=== PATIENT | female | born 1950 ===

== ENCOUNTER 2016-05-13 19:17 | Inpatient (IN) | payer MEDICARE ==
[2016-05-13] MEDS ORDERED: Acetaminophen TAB* 325 MG PO PRN (21:04)
[2016-05-13] MEDS ORDERED: Dextrose 50% Syringe 50 ML* 25 GM/50 ML SYRINGE IV PUSH PRN (21:05)
[2016-05-13] MEDS: NS 0.9% 1000 ML* 1,000 ML IV SCH (21:14)
[2016-05-13] MEDS: Heparin VIAL(*) 5000 UNITS/ML VIAL (FIVE THOUSAND) SUBCUT SCH (21:32)
[2016-05-13] MEDS: Insulin LISPRO* 1 UNITS UNIT SUBCUT SCH (23:31)
[2016-05-13] MEDS: buPROPion SR TAB.SR* 200 MG PO SCH (23:32)
[2016-05-13] MEDS: Oxybutynin TAB* 5 MG PO SCH (23:32)
[2016-05-13] MEDS: DULoxetine DR CAP* 60 MG CAP.DR PO SCH (23:32)
[2016-05-14 00:29] LABS: Hematocrit 35 % (35-47); Hemoglobin 11.7 g/dl (12.0-16.0); Mean Corpuscular HGB Conc 34 g/dl (31-36); Mean Corpuscular Hemoglobin 29 pg (27-31); Mean Corpuscular Volume 88 fL (80-97); Mean Platelet Volume 9 um3 (7.4-10.4); Red Blood Count 3.98 10^6/ul (4.0-5.4); Red Cell Distribution Width 14 % (10.5-15)
[2016-05-14 00:43] LABS: EGFR African American 20.3 (>60); EGFR Non-African American 15.8 (>60)
--- NOTE | 2016-05-14 01:10 | HP ---
HISTORY AND PHYSICAL: DATE OF ADMISSION: 05/13/16 CHIEF COMPLAINT: "I couldn't get out of my bathtub." HISTORY OF PRESENT ILLNESS: The patient is a 65-year-old woman who has had a decreased appetite over the past week and on Thursday morning said she had a sweet and salty bar and a glass of milk and then felt a little tired. She did have some Reji crackers with milk and took a belch and it tasted like eggs. She went to the bathroom because she felt she had to vomit. She did vomit as she rushed in. She then felt that she had had diarrhea. She swung around to have it. Then she felt like she had to get cleaned up so she put her foot in the bathtub. As she tried to hold herself up with her hand, she fell, injuring her right and left shoulder and her chest where her breast implant was. She tried to pull herself up but was unable to. She felt her left knee and ankle were also injured, but she does not have much feeling in those areas because of the diabetic neuropathy. Then she screamed so loud that the neighbor came and got her. She was taken to [facility] where she was found to be in worsening renal failure, although not in rhabdomyolysis. She was also found to have no evidence of fracture. PAST MEDICAL HISTORY: She has a past medical history for right breast cancer, status post right mastectomy and subsequent tissue patient financial coordinator and breast implant. Depression, status post ECT, hypertension, hypothyroidism, diabetes mellitus currently not on medications. Diabetic neuropathy as noted above, history of lumbar strain, history of herniated disk. PAST SURGICAL HISTORY: Significant for the tissue patient financial coordinator and mastectomy as noted above, also lymph node dissection, hemorrhoidectomy, anal fissure repair. CURRENT MEDICATIONS: 1. Bupropion SR 200 mg twice daily. 2. Dyazide 37.5/25 one capsule daily. 3. Potassium gluconate 99 mg daily. 4. Oxybutynin 5 mg twice daily. 5. Bystolic 10 mg daily. 6. Lisinopril 2.5 mg daily. 7. Levothyroxine 50 mcg daily. 8. Cymbalta 60 mg twice daily. 9. Vitamin B12 500 mcg daily. 10. Allopurinol 100 mg daily. 11. Vitamin D 400 units daily. ALLERGIES: She has an allergy/adverse reaction to CODEINE and ADHESIVE TAPE. FAMILY HISTORY: Mother at 79 of a CVA. Father at 86 of an IN. SOCIAL HISTORY: No tobacco. Rare alcohol. No recreational drug use. 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 She is a . She has 3 sons. She has no one she can name currently as her healthcare proxy. REVIEW OF SYSTEMS: A 14-point review of systems is completed with the patient. All pertinent positives and negatives are in the history of present illness, otherwise it is negative. PHYSICAL EXAMINATION GENERAL: Obese woman, lying in bed, in no acute distress. VITAL SIGNS: Temperature 98.2 degrees, heart rate 83 beats per minute, respiratory rate 19 breaths per minute, pulse ox 92% on 2 L, blood pressure 98/ 52. HEENT: Normocephalic, atraumatic. Pupils equal, round, and reactive to light. Moist mucous membranes. NECK: Supple. No JVD, bruits, palpable thyroid, or lymphadenopathy. CHEST: Clear to auscultation and percussion bilaterally. CARDIOVASCULAR: S1, S2 appreciated. Regular rate. ABDOMEN: Positive bowel sounds in all 4 quadrants. Soft, nontender, nondistended. EXTREMITIES: No cyanosis or clubbing. She has got bilateral edema. She has got dry cracking skin on the bottom of her feet. SKIN: Other than the aforementioned areas on her feet, no distinct lesions or abnormalities. DIAGNOSTIC STUDIES/LAB DATA: Her lab data from [place], white count 11.92, hemoglobin 14.7, hematocrit 44.1, platelets were 233. Sodium is 135, potassium 3.8, chloride 95, CO2 27, BUN is 65, creatinine 3.5, glucose is 136. CPK is 42. AST is 93, ALT is 20. Urinalysis shows +1 ketones, +1 protein, but negative leukocyte esterase and nitrites. Troponin was 0.01. EKG shows normal sinus rhythm at a rate of about 80 beats per minute. Normal axis. Intraventricular conduction delay, nonspecific ST-T wave changes. Her imaging: CT of the lumbar spine shows no fracture, stable grade 1 subluxation of L4 and L5. Significant spinal stenosis at L4-L5 with dynamic motion mass effect on the central nerve roots is a consideration, recommend clinical correlation, significant facet degenerative changes with significant neuroforaminal narrowing at bilateral L4-L5, L5-S1 with dynamic motion mass effect , which is a consideration, recommend clinical correlation. CT of her thoracic spine shows no fracture or subluxation. Multilevel degenerative changes. Her CT of the cervical spine shows no fracture or subluxation. Multilevel mild degenerative changes. CT of the head shows no acute intracranial hemorrhage, significant mass effect or large infarct, no displaced calvarial fracture or sinus air-fluid level. CT of the chest shows no focal infiltrate, pleural effusion or pneumothorax. A 7-mm left upper lobe nodule; according to ACR Lung-RADS, this is a category IV suspicious. Short- term followup low dose CT of the chest can be obtained in 3 months. On PET/CT examination, no rib fracture. ASSESSMENT AND PLAN: 1. Status post fall with dehydration and acute on chronic renal failure. Will hydrate the patient aggressively with normal saline at a rate of 150 cc an hour. Recheck labs in a.m. Imaging so far is negative. I will get a PT consult in the a.m. There does not seem to be any acute findings going on, but she may have spinal stenosis, which is contributing to her fall. 2. Diabetes mellitus. The patient says she was taken off her metformin for renal failure, which is appropriate. We will check her hemoglobin A1c and place her on fingerstick sliding scale insulin. For now, regular diet as the patient has not eaten for over 24 hours and I do not want to limit her. 3. Depression. Continue her Cymbalta and bupropion. 4. Hypothyroidism, stable. Continue Synthroid. 5. Hypertension. Continue her current medications and adjust accordingly if necessary. 6. Abnormal LFTs. AST:ALT ratio is quite high, although the labs are not that high. I am suspecting she may use alcohol, but she denies it. We will watch her overnight and see if any evidence of withdrawal. 7. FEN. Regular diet and normal saline 100 cc/hour. 8. DVT prophylaxis. Heparin subcu. 9. The patient is a full code. TIME SPENT: Over 85 minutes was spent on this H and P, more than 40 minutes of which was spent in direct [id number] contact with the patient in evaluation, physical exam, counseling, and coordination of care. CC: Wes Parry MD* [id number]/[facility] #: [id number] AZEEM
[2016-05-14] MEDS: Insulin LISPRO* 1 UNITS UNIT SUBCUT SCH ×4 (03:45→21:10)
[2016-05-14 04:50] LABS: Hematocrit 34 % (35-47); Hemoglobin 11.3 g/dl (12.0-16.0); Mean Corpuscular HGB Conc 33 g/dl (31-36); Mean Corpuscular Hemoglobin 29 pg (27-31); Mean Corpuscular Volume 88 fL (80-97); Mean Platelet Volume 9 um3 (7.4-10.4); Red Blood Count 3.87 10^6/ul (4.0-5.4); Red Cell Distribution Width 14 % (10.5-15)
[2016-05-14 05:21] LABS: Albumin 3.1 g/dL (3.2-5.2); BUN/Creatinine Ratio 19.2 (8-20); Calcium 9.9 mg/dL (8.6-10.3); EGFR African American 21.1 (>60); EGFR Non-African American 16.4 (>60); Globulin 2.5 g/dL (2-4); Total Bilirubin 0.4 mg/dL (0.2-1.0); Total Protein 5.6 g/dL (6.4-8.9)
[2016-05-14] MEDS: Heparin VIAL(*) 5000 UNITS/ML VIAL (FIVE THOUSAND) SUBCUT SCH ×3 (05:45→21:09)
[2016-05-14] MEDS: Levothyroxine TAB* 50 MCG TAB PO SCH (05:45)
[2016-05-14] MEDS: NS 0.9% 1000 ML* 1,000 ML IV SCH ×2 (06:47→14:00)
[2016-05-14] MEDS: buPROPion SR TAB.SR* 200 MG PO SCH ×2 (08:28→21:10)
[2016-05-14] MEDS: Cyanocobalamin TAB* 500 MCG PO SCH (08:29)
[2016-05-14] MEDS: Cholecalciferol TAB* 400 UNIT PO SCH (08:29)
[2016-05-14] MEDS: DULoxetine DR CAP* 60 MG CAP.DR PO SCH ×2 (08:30→21:10)
[2016-05-14] MEDS: Oxybutynin TAB* 5 MG PO SCH ×2 (08:30→21:11)
[2016-05-14] MEDS: CMCS Nebivolol TAB (NF) 2.5 MG TAB PO SCH (08:30)
[2016-05-14] MEDS: Allopurinol TAB* 100 MG PO SCH (08:30)
[2016-05-14] MEDS ORDERED: Lisinopril TAB* 5 MG PO SCH (09:00)
[2016-05-14 11:00] LABS: Urine Bilirubin Negative (Negative); Urine Glucose Negative (Negative); Urine Nitrite Negative (Negative)
[2016-05-14 11:59] LABS: Troponin I 0.03 ng/mL (<0.04)
--- NOTE | 2016-05-14 17:05 | PN ---
Subjective Date of Service: 05/14/16 Interval History: Seen and examined Circuitous conversation. Feels confused because she thought today was thursday She is affraid of going home because she does not think she can manage She also keeps returning to when she thought someone was breaking into her home PT agrees with KATHRIN placement and pt happy with this result No chest pain, no SOB, walking to bathroom with assistance, no N/V, tolerating food Objective Active Medications: Acetaminophen (Tylenol Tab*) 650 mg PO Q4H PRN PRN Reason: FEVER/PAIN Allopurinol (Zyloprim Tab*) 100 mg PO DAILY [facility] Last Admin: 05/14/16 08:30 Dose: 100 mg Bupropion HCl (Wellbutrin Sr Tab*) 200 mg PO BID [facility] Last Admin: 05/14/16 08:28 Dose: 200 mg Cholecalciferol (Vitamin D Tab*) 400 unit PO DAILY [facility] Last Admin: 05/14/16 08:29 Dose: 400 unit Cyanocobalamin (Vitamin B12 Tab*) 500 mcg PO DAILY [facility] Last Admin: 05/14/16 08:29 Dose: 500 mcg Dextrose (D50w Syringe 50 Ml*) 12.5 gm IV PUSH .FOR FS < 60 - SS PRN PRN Reason: FS < 60 Duloxetine HCl (Cymbalta Cap*) 60 mg PO BID [facility] Last Admin: 05/14/16 08:30 Dose: 60 mg Heparin Sodium (Porcine) (Heparin Vial(*)) 5,000 units SUBCUT Q8HR [facility] Last Admin: 05/14/16 13:17 Dose: 5,000 units Sodium Chloride (Ns 0.9% 1000 Ml*) 1,000 mls @ 150 mls/hr IV PER RATE [facility] Last Admin: 05/14/16 14:00 Dose: 150 mls/hr Insulin Human Lispro (Humalog*) 0 units SUBCUT ACHS [facility] PRN Reason: Protocol Last Admin: 05/14/16 11:50 Dose: 2 units Levothyroxine Sodium (Synthroid Tab*) 50 mcg PO 0600 [facility] Last Admin: 05/14/16 05:45 Dose: 50 mcg Lisinopril (Prinivil Tab*) 2.5 mg PO DAILY [facility] Last Admin: 05/14/16 08:28 Dose: 2.5 mg Nebivolol (Bystolic Tab (Nf)) 10 mg PO DAILY [facility] Last Admin: 05/14/16 08:30 Dose: 10 mg Ondansetron HCl (Zofran Inj*) 4 mg IV Q4H PRN PRN Reason: NAUSEA Oxybutynin Chloride (Ditropan Tab*) 5 mg PO BID [facility] Last Admin: 05/14/16 08:30 Dose: 5 mg Vital Signs 05/13/16 05/14/16 05/14/16 19:25 00:21 03:59 Temperature 98.2 F 98.3 F 98.3 F Pulse Rate 83 88 86 Respiratory 19 20 20 Rate Blood Pressure 98/52 93/52 95/44 (mmHg) O2 Sat by Pulse 92 99 97 Oximetry 05/14/16 05/14/16 05/14/16 07:40 07:58 11:06 Temperature 97.9 F 98.2 F Pulse Rate 78 80 Respiratory 16 16 16 Rate Blood Pressure 109/52 96/57 (mmHg) O2 Sat by Pulse 97 99 Oximetry 05/14/16 13:29 Temperature 98.3 F Pulse Rate 79 Respiratory 18 Rate Blood Pressure 96/55 (mmHg) O2 Sat by Pulse 100 Oximetry Oxygen Devices in Use Now: None Appearance: NAD, in chair Eyes: No Scleral Icterus, PERRLA Ears/Nose/Mouth/Throat: Clear Oropharnyx, Mucous Membranes Moist Neck: NL Appearance and Movements; NL JVP, Trachea Midline Respiratory: Symmetrical Chest Expansion and Respiratory Effort, Clear to Auscultation Cardiovascular: RRR Abdominal: NL Sounds; No Tenderness; No Distention, No Hepatosplenomegaly Lymphatic: No Cervical Adenopathy Extremities: No Edema Skin: No Rash or Ulcers Neurological: Alert and Oriented x 3 Result Diagrams: 05/14/16 04:32 05/14/16 04:33 Assess/Plan/Problems-Billing Assessment: 65 yo F h/o depression, HTN, DM, presents after fall into bathroom tub with unknown duration down but normal CK - Patient Problems (1) Fall Comment: In setting of vomiting and diarrhea Pt reports she is only eating 1 meal a day because meals on wheels leaves before she can get to the door I think dehydration contributing to weakness and fall in bathroom c/w IV crystalloids (2) VAIBHAV (acute kidney injury) Comment: Suspect in setting of volume depletion crystalloids as above remove alcantara catheter check BMP tomorrow (3) Diabetes Comment: on no home medications SS insulin here (4) Hypertension Comment: c/w bystolic hold other meds check CXR in setting of lower BPs off meds (5) DVT prophylaxis Comment: HSQ
--- NOTE | 2016-05-14 19:28 | RAD ---
INDICATION: Shortness of breath COMPARISON: CT of the chest acquired for 417 TECHNIQUE: PA and lateral views of the chest were obtained. FINDINGS: The heart and mediastinum are normal in size and contour. Again noted is the stigmata of chronic obstructive pulmonary disease. The lungs are grossly clear. There is no evidence of large pleural effusion. Visualized bones are normal for the patient's age. There is no radiographic evidence of free air beneath the diaphragm IMPRESSION: No radiographic evidence of acute cardiopulmonary disease.
[2016-05-15] MEDS: NS 0.9% 1000 ML* 1,000 ML IV SCH ×4 (00:05→23:07)
[2016-05-15 05:16] LABS: BUN/Creatinine Ratio 20.5 (8-20); Calcium 9.6 mg/dL (8.6-10.3); EGFR African American 30.2 (>60); EGFR Non-African American 23.5 (>60); Potassium 3.1 mmol/L (3.5-5.0)
[2016-05-15] MEDS: Heparin VIAL(*) 5000 UNITS/ML VIAL (FIVE THOUSAND) SUBCUT SCH ×3 (05:32→21:41)
[2016-05-15] MEDS: Levothyroxine TAB* 50 MCG TAB PO SCH (05:33)
[2016-05-15] MEDS: Oxybutynin TAB* 5 MG PO SCH ×2 (07:58→20:49)
[2016-05-15] MEDS: Cholecalciferol TAB* 400 UNIT PO SCH (07:58)
[2016-05-15] MEDS: buPROPion SR TAB.SR* 200 MG PO SCH ×2 (07:58→20:49)
[2016-05-15] MEDS: DULoxetine DR CAP* 60 MG CAP.DR PO SCH ×2 (07:58→20:49)
[2016-05-15] MEDS: Cyanocobalamin TAB* 500 MCG PO SCH (07:58)
[2016-05-15] MEDS: Allopurinol TAB* 100 MG PO SCH (07:59)
[2016-05-15] MEDS: CMCS Nebivolol TAB (NF) 2.5 MG TAB PO SCH (07:59)
[2016-05-15] MEDS: Insulin LISPRO* 1 UNITS UNIT SUBCUT SCH ×4 (08:00→20:45)
[2016-05-15] MEDS: Ondansetron INJ* 2 MG/ML VIAL IV PRN ×3 (09:38→20:54)
[2016-05-15] MEDS ORDERED: Potassium Chlor TAB* 20 MEQ TAB.ER PO ONE (16:53)
--- NOTE | 2016-05-15 16:55 | PN ---
Subjective Date of Service: 05/15/16 Interval History: . doing well wants to know "what's the plan" --> was ok with plan of dc to [place] tomorrow Family History: Unchanged from Admission Social History: Unchanged from Admission Past Medical History: Unchanged from Admission Objective Active Medications: . Acetaminophen (Tylenol Tab*) 650 mg PO Q4H PRN PRN Reason: FEVER/PAIN Allopurinol (Zyloprim Tab*) 100 mg PO DAILY [facility] Last Admin: 05/15/16 07:59 Dose: 100 mg Bupropion HCl (Wellbutrin Sr Tab*) 200 mg PO BID [facility] Last Admin: 05/15/16 07:58 Dose: 200 mg Cholecalciferol (Vitamin D Tab*) 400 unit PO DAILY [facility] Last Admin: 05/15/16 07:58 Dose: 400 unit Cyanocobalamin (Vitamin B12 Tab*) 500 mcg PO DAILY [facility] Last Admin: 05/15/16 07:58 Dose: 500 mcg Dextrose (D50w Syringe 50 Ml*) 12.5 gm IV PUSH .FOR FS < 60 - SS PRN PRN Reason: FS < 60 Duloxetine HCl (Cymbalta Cap*) 60 mg PO BID [facility] Last Admin: 05/15/16 07:58 Dose: 60 mg Heparin Sodium (Porcine) (Heparin Vial(*)) 5,000 units SUBCUT Q8HR [facility] Last Admin: 05/15/16 14:09 Dose: 5,000 units Sodium Chloride (Ns 0.9% 1000 Ml*) 1,000 mls @ 150 mls/hr IV PER RATE [facility] Last Admin: 05/15/16 15:07 Dose: 150 mls/hr Insulin Human Lispro (Humalog*) 0 units SUBCUT ACHS [facility] PRN Reason: Protocol Last Admin: 05/15/16 16:23 Dose: Not Given Levothyroxine Sodium (Synthroid Tab*) 50 mcg PO 0600 [facility] Last Admin: 05/15/16 05:33 Dose: 50 mcg Nebivolol (Bystolic Tab (Nf)) 10 mg PO DAILY [facility] Last Admin: 05/15/16 07:59 Dose: 10 mg Ondansetron HCl (Zofran Inj*) 4 mg IV Q4H PRN PRN Reason: NAUSEA Last Admin: 05/15/16 15:08 Dose: 4 mg Oxybutynin Chloride (Ditropan Tab*) 5 mg PO BID [facility] Last Admin: 05/15/16 07:58 Dose: 5 mg . Vital Signs 05/14/16 05/15/16 05/15/16 20:00 00:36 06:56 Temperature 98.3 F Pulse Rate 72 Respiratory 20 24 18 Rate Blood Pressure 107/55 (mmHg) O2 Sat by Pulse 99 Oximetry 05/15/16 05/15/16 05/15/16 07:31 08:31 11:10 Temperature 98.2 F 98.2 F Pulse Rate 77 80 80 Respiratory 18 18 Rate Blood Pressure 136/80 119/68 (mmHg) O2 Sat by Pulse 95 95 98 Oximetry Oxygen Devices in Use Now: None Appearance: NAD Eyes: No Scleral Icterus Ears/Nose/Mouth/Throat: NL Teeth, Lips, Gums Neck: NL Appearance and Movements; NL JVP Respiratory: Symmetrical Chest Expansion and Respiratory Effort, Clear to Auscultation Cardiovascular: NL Sounds; No Murmurs; No JVD Abdominal: NL Sounds; No Tenderness; No Distention Lymphatic: No Cervical Adenopathy Extremities: No Edema Skin: No Rash or Ulcers Lines/Tubes/Other Access: Clean, Dry and Intact Peripheral IV Nutrition: Taking PO's Result Diagrams: 05/14/16 04:32 05/15/16 04:43 Assess/Plan/Problems-Billing Assessment: 65 yo F h/o depression, HTN, DM, presents after fall into bathroom tub with unknown duration down but normal CK - Patient Problems (1) VAIBHAV (acute kidney injury) Current Visit: Yes Status: Acute Priority: High Code(s): N17.9 - ACUTE KIDNEY FAILURE, UNSPECIFIED Comment: Cr was up to above 3. Suspect in setting of volume depletion crystalloids as above cr improving (2) Diabetes Current Visit: Yes Status: Acute Code(s): E11.9 - TYPE 2 DIABETES MELLITUS WITHOUT COMPLICATIONS SNOMED Code(s): 61809137 Comment: on no home medications SS insulin here (3) Fall Current Visit: Yes Status: Acute Comment: - In setting of vomiting and diarrhea - Pt reports she is only eating 1 meal a day because meals on wheels leaves before she can get to the door - dehydration contributing to weakness and fall in bathroom - c/w IV crystalloids (4) Hypertension Current Visit: Yes Status: Acute Code(s): I10 - ESSENTIAL (PRIMARY) HYPERTENSION Comment: c/w bystolic hold other meds CXR was Ok (5) DVT prophylaxis Current Visit: Yes Status: Acute Priority: High Code(s): [id number] - Comment: - SQH
[2016-05-16 05:53] LABS: BUN/Creatinine Ratio 18.5 (8-20); Calcium 8.9 mg/dL (8.6-10.3); EGFR African American 40.8 (>60); EGFR Non-African American 31.7 (>60); Potassium 3.5 mmol/L (3.5-5.0)
[2016-05-16] MEDS: Heparin VIAL(*) 5000 UNITS/ML VIAL (FIVE THOUSAND) SUBCUT SCH (05:55)
[2016-05-16] MEDS: Levothyroxine TAB* 50 MCG TAB PO SCH (05:55)
[2016-05-16] MEDS: NS 0.9% 1000 ML* 1,000 ML IV SCH (06:08)
--- NOTE | 2016-05-16 09:30 | DS ---
DATE OF ADMISSION: 05/13/16 DATE OF DISCHARGE: 05/16/16 PRIMARY CARE PROVIDER: Dr. Wes Parry STATUS DURING HOSPITALIZATION: Inpatient. PRINCIPAL DIAGNOSES: 1. [id number] renal failure with creatinine at outside hospital greater than 3x patient's baseline with a fall and weakness in the setting of poor oral intake, vomiting and diarrhea, and baseline intrarenal failure secondary to diabetic nephropathy. 2. Type II diabetes mellitus - non-insulin dependent. 3. 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 4. Ongoing depression, status post ECT. 5. Hypertension. 6. Hypothyroidism. 7. Diabetic neuropathy. 8. History of lumbar strain. 9. History of herniated disk. 10. Deconditioning and morbid obesity. 11. History of hemorrhoidectomy/anal fissure repair. DISCHARGE MEDICATION REGIMEN: 1. Allopurinol 100 mg by mouth daily. 2. Cholecalciferol/Vitamin D 400 units by mouth daily. 3. Cyanocobalamin 500 mcg by mouth daily (vitamin B12). 4. Duloxetine/Cymbalta 60 mg by mouth twice daily. 5. Levothyroxine 50 mcg by mouth daily. 6. Lisinopril 2.5 mg by mouth daily. 7. Bystolic/Nebivolol 10 mg by mouth daily. 8. Oxybutynin/Ditropan 5 mg by mouth twice daily. 9. Potassium gluconate 99 mg by mouth daily (continuation). 10. Triamterene/hydrochlorothiazide 37.5/25 mg capsule, one capsule once daily. 11. Bupropion SR 200 mg by mouth twice daily. 12. Acetaminophen 650 mg by mouth every 4 hours prn pain/fever. HISTORY OF PRESENT ILLNESS/HOSPITAL COURSE: Please see the comprehensive H and P by Dr. Toño Kim on 05/13/16. In brief, Ms. Ayala is a pleasant 65-year- old woman who had a decline in her oral intake and episodes of vomiting and diarrhea. She was using the restroom after vomiting and put her foot in the bathtub and fell, injuring her right and left shoulder and her chest at the site of her breast implant. The patient could not get herself up. She called to a neighbor who kindly responded, and the patient was taken by EMS to [facility] where she was evaluated. The patient had acute renal failure with a creatinine greater than 3.5 with a baseline as per our labs of 1.2, demonstrating effectively a three-fold increase of an already elevated creatinine, certainly consistent with acute renal failure. The patient has known diabetic neuropathy and nephropathy, so this was an [id number] failure, and the patient was aggressively hydrated. She was evaluated for any fracture, and there was not found to be one. The patient was profoundly weak. She was seen by physical therapy and deemed a candidate for subacute rehab. The patient is currently stable. Her creatinine is slowly trending downward over several days. Her repeat creatinine on 05/14/16 was 2.97; later that day 2.87; the following day, 05/15/16, 2.10; and, again, this morning at 1.62 - still not at baseline despite several liters of rehydration with presumption of intrarenal component of failure in this unfortunate patient. The patient will be followed by Dr. Wes Parry and is being transferred to a swing bed at [facility]. Her labs on the morning of 05/16/16 are favorable with a creatinine borderline low at 3.5. She's being repleted with her standing potassium. Again, her BUN to creatinine is 30 and 1.62, demonstrating ongoing improvement. There is no indication for a CBC analysis. The white blood count on admission was certainly a stress reaction at 11.0. There is no indication for following that. Her hemoglobin is stable. Total time taken to discharge/transfer Ms. Ayala was 70 minutes; greater than half that time was spent going over the discharge instructions with the patient and coordinating the logistics of the transfer in conjunction with the case management staff at [facility]. CONDITION AT TRANSFER: Stable. CC: Dr. Wes Parry* [id number]/[facility] #: [id number] [facility]
[2016-05-16] MEDS: Insulin LISPRO* 1 UNITS UNIT SUBCUT SCH ×2 (09:34→11:59)
[2016-05-16] MEDS: Ondansetron INJ* 2 MG/ML VIAL IV PRN (09:41)
[2016-05-16] MEDS: CMCS Nebivolol TAB (NF) 2.5 MG TAB PO SCH (09:41)
[2016-05-16] MEDS: Cholecalciferol TAB* 400 UNIT PO SCH (09:42)
[2016-05-16] MEDS: Cyanocobalamin TAB* 500 MCG PO SCH (09:42)
[2016-05-16] MEDS: DULoxetine DR CAP* 60 MG CAP.DR PO SCH (09:42)
[2016-05-16] MEDS: Oxybutynin TAB* 5 MG PO SCH (09:42)
[2016-05-16] MEDS: buPROPion SR TAB.SR* 200 MG PO SCH (09:42)
[2016-05-16] MEDS: Allopurinol TAB* 100 MG PO SCH (09:42)
[2016-05-16] MEDS ORDERED: Furosemide IV* 10 MG/ML VIAL (40 MG) IV ONE (11:42)
[2016-05-16 12:19] VITALS: BP 125/62
== END 2016-05-16 14:00 | disposition swing bed (61) | DRG 683 ==
LOC: MEDTELE 19:17
PROVIDERS: ADMIT Internal Medicine; ATTEND Internal Medicine
DX: I12.9 Hypertensive chronic kidney disease with stage 1 through stage 4 chronic kidney disease, or unspecified chronic kidney disease (principal); N17.9 Acute kidney failure, unspecified; E11.40 Type 2 diabetes mellitus with diabetic neuropathy, unspecified; E11.21 Type 2 diabetes mellitus with diabetic nephropathy; E11.22 Type 2 diabetes mellitus with diabetic chronic kidney disease; N18.9 Chronic kidney disease, unspecified; E03.9 Hypothyroidism, unspecified; E66.9 Obesity, unspecified; Z68.29 Body mass index [BMI] 29.0-29.9, adult; F32.9 Major depressive disorder, single episode, unspecified; W18.2XXA Fall in (into) shower or empty bathtub, initial encounter; Y92.002 Bathroom of unspecified non-institutional (private) residence as the place of occurrence of the external cause; Z85.3 Personal history of malignant neoplasm of breast; Z98.82 Breast implant status; Z79.899 Other long term (current) drug therapy; Z88.5 Allergy status to narcotic agent; Z91.048 Other nonmedicinal substance allergy status; Z82.49 Family history of ischemic heart disease and other diseases of the circulatory system; Z82.3 Family history of stroke
CPT/HCPCS: 36415; 71020; 80048; 80053; 81003; 82550; 82565; 83036; 84484; 84520; 85025; 85610; 85730; 93005; A9270-GY; J1644; J1940; J2405